=== PATIENT | female | born 1990 | race Caucasian/White ===

== ENCOUNTER 2018-09-23 19:45 | Inpatient (IN) | payer OTHER, SELFPAY ==
[2018-09-23] MEDS: Lactated Ringers 1,000 ML 50 ML IV (20:10)
[2018-09-23 20:52] LABS: Absolute Lymphocyte Count 2.71 X10^3/ul (0.83-4.51); Basophil# 0.01 X10^3/uL; Basophil% 0.1 % (0-1); Eosinophil# 0.05 X10^3/uL; Eosinophils% 0.4 % (0-5); Hematocrit 32.5 % (37-47); Hemoglobin 10.9 g/dl (12.0-15.0); Lymphocyte # 2.71 X10^3/ul (4.0); Lymphocyte % 21.5 % (19-41); Mean Corp Hgb Conc 33.5 g/gl (32-36); Mean Corpuscular Hgb 28.7 pg (27.0-32.0); Mean Corpuscular Volume 85.5 fL (81-99); Mean Platelet Vol. 11.1 fl (6.2-12.0); Monocyte# 0.86 X10^3/uL; Monocyte% 6.8 % (0-10); Neutrophil # 8.96 X10^3/uL (2.7-7.7); Platelet Count 308 K/mm3 (150-450); RBC Distribution Width CV 13.8 % (11.6-14.6); RBC Distribution Width SD 42.3 fl (35.1-43.9); White Blood Count 12.6 K/mm3 (4.4-11.0)
[2018-09-23 20:54] LABS: Prothrombin Time (Protime)PT. 12.7 SECONDS (11.7-14.9)
[2018-09-23 20:55] LABS: Partial Thromboplast Time 27.7 Seconds (24.1-36.2)
[2018-09-23 20:58] LABS: AST(SGOT) 15 U/L (15-37); Alanine Aminotransfer ALT/SGPT 15 U/L (13-56); Creatinine, Serum 0.61 mg/dL (0.55-1.02); EST Glomerular Filtration Rate 122 mL/min (>60); Est Glom Filt Rate - Afr Amer 148 mL/min (>60); Uric Acid 5.2 mg/dL (2.6-6.0)
[2018-09-23 20:59] LABS: Protein, Urine (Random) 20.6 mg/dL (<11.9); Protein:Creat Ratio 302 mg/g CRE (0-200)
--- NOTE | 2018-09-23 21:03 | PCM.HP.OB ---
- Problem List (1) Pre-eclampsia affecting , antepartum Status: Acute History Date of Admission: 09/23/18 Final RICH: 10/13/18 Final RICH Source: US <20 weeks Gestational age: 37 Weeks and 1 Days History of this : This is a 28 year-old, G [1], P [0], at 37 weeks gestational age presenting to labor and delivery for IOL for pre-eclampsia. Patient diagnosed with pre-eclampsia without severe features at 34 weeks. Patient denies JURADO, denies scotoma, denies RUQ pain or dizziness. Allergies No Known Allergies Allergy (Verified 09/23/18 20:46) Smoking Status: Never smoker Alcohol: None Number of Fetus(es): 1 Heart Tracing: Baseline 140, moderate variability, + accels, no decels TOCO Analysis: Irregular, mild to moderate in strength History Past Pregnancies: Past Pregnancies Delivery Date Name GA/Weeks Outcome Route Weight Infant Gender Labor Length Anesthesia Delivery Location Provider FOB Labs: O+, Abs Screen Neg, HIV NR, HepBsAg Neg, Rubella Immune, Syphilis NR, CF Screen Neg, Sequential Screen Negative, Urine Culture Neg, Urine Tox Neg, GC/CT Neg/Neg, CBC WNL x 4, Pre-E labs showed elevated P/C urine ratio and 24 hour urine protein (~300g/24 hours), LFTs WNL Expected Infant Delivery Method: Spontaneous Vaginal Number of Visits: 16 Review of Systems Constitutional: Denies: Chills, Fever, Weight Change HEENT: Denies: Head Aches, Sinus Congestion, Sinus Drainage Cardiovascular: Denies: Chest Pain, Palpitations Respiratory: Denies: Cough, Shortness of breath at rest, Sputum production Gastrointestinal: Denies: Abdominal Pain, Nausea, Vomiting Genitourinary: Denies: Dysuria Musculoskeletal: Denies: Joint Pain, Joint Tenderness Skin: Denies: Rash, Wounds Neurological: Denies: Numbness, Tingling, Focal weakness Psychiatric: Denies: Anxiety, Depression, Homicidal Ideations, Suicidal Ideations Hematologic/ Lymphatic: Denies: Easy Bruising, Easy Bleeding Physical Exam General: Alert, Oriented x3, No apparent distress HEENT: Atraumatic, Normocephalic. 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 Negative for: Vulvar lesions Estimated gestational size: Appropriate for gestational size Presentation: Cephalic Cervix Dilation (cm): 1 - head ballotable Station: -3 Effacement (%): 50 Assessment/Plan All Active Problems Pre-eclampsia affecting , antepartum (Acute) This is a 28 year-old, G [1], P [0], at 37+ weeks gestational age, IOL for Pre-Eclampsia without severe features P: 1) Admit patient - Dr. Fiore aware of admission 2) Cytotec 25 mg PV q 4 hours per protocol at this time - will reassess cervix after 2 doses 3) Pre-E panel and Urine P/C ratio collected 4) Reassess patient cervix PRN Kecia Leon [employer]PERVISOR [employer]-CNM
[2018-09-23 21:06] LABS: POSITIVE COUNT NO; POSITIVE DIFFERENTIAL NO; POSITIVE MORPHOLOGY NO
[2018-09-23 21:11] VITALS: BMI 39.2
[2018-09-23] MEDS: 0.9% Saline Lock 10 ML Syringe IV (21:12)
--- NOTE | 2018-09-23 21:12 | HP.PCM_ITS ---
- Problem List (1) Pre-eclampsia affecting , antepartum Status: Acute History Date of Admission: 09/23/18 Final RICH: 10/13/18 Final RICH Source: US <20 weeks Gestational age: 37 Weeks and 1 Days History of this : This is a 28 year-old, G [1], P [0], at 37 weeks gestational age presenting to labor and delivery for IOL for pre-eclampsia. Patient diagnosed with pre-eclampsia without severe features at 34 weeks. Patient denies JURADO, denies scotoma, denies RUQ pain or dizziness. Allergies No Known Allergies Allergy (Verified 09/23/18 20:46) Smoking Status: Never smoker Alcohol: None Number of Fetus(es): 1 Heart Tracing: Baseline 140, moderate variability, + accels, no decels TOCO Analysis: Irregular, mild to moderate in strength History Past Pregnancies: Past Pregnancies Delivery Date Name GA/Weeks Outcome Route Weight Infant Gender Labor Length Anesthesia Delivery Location Provider FOB Labs: O+, Abs Screen Neg, HIV NR, HepBsAg Neg, Rubella Immune, Syphilis NR, CF Screen Neg, Sequential Screen Negative, Urine Culture Neg, Urine Tox Neg, GC/CT Neg/Neg, CBC WNL x 4, Pre-E labs showed elevated P/C urine ratio and 24 hour urine protein (~300g/24 hours), LFTs WNL Expected Infant Delivery Method: Spontaneous Vaginal Number of Visits: 16 Review of Systems Constitutional: Denies: Chills, Fever, Weight Change HEENT: Denies: Head Aches, Sinus Congestion, Sinus Drainage Cardiovascular: Denies: Chest Pain, Palpitations Respiratory: Denies: Cough, Shortness of breath at rest, Sputum production Gastrointestinal: Denies: Abdominal Pain, Nausea, Vomiting Genitourinary: Denies: Dysuria Musculoskeletal: Denies: Joint Pain, Joint Tenderness Skin: Denies: Rash, Wounds Neurological: Denies: Numbness, Tingling, Focal weakness Psychiatric: Denies: Anxiety, Depression, Homicidal Ideations, Suicidal Ideations Hematologic/ Lymphatic: Denies: Easy Bruising, Easy Bleeding Physical Exam General: Alert, Oriented x3, No apparent distress HEENT: Atraumatic, Normocephalic. 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 Negative for: Vulvar lesions Estimated gestational size: Appropriate for gestational size Presentation: Cephalic Cervix Dilation (cm): 1 - head ballotable Station: -3 Effacement (%): 50 Assessment/Plan All Active Problems Pre-eclampsia affecting , antepartum (Acute) This is a 28 year-old, G [1], P [0], at 37+ weeks gestational age, IOL for Pre- Eclampsia without severe features P: 1) Admit patient - Dr. Fiore aware of admission 2) Cytotec 25 mg PV q 4 hours per protocol at this time - will reassess cervix after 2 doses 3) Pre-E panel and Urine P/C ratio collected 4) Reassess patient cervix PRN Kecia Leon [employer]LEMENT[employer] SCHOOL REGISTRAR-CNM
[2018-09-24] MEDS: 0.9% Normal Saline 100 ML IV.SOLN. INTRA-UTER (05:47)
--- NOTE | 2018-09-24 06:07 | PN.OBGYN_ITS ---
Patient Problems: Active and Suspected Problems Pre-eclampsia affecting , antepartum (Acute) Subjective: Patient rested well overnight, reports occasional cramping still after receiving 2 doses of Cytotec. Plan for repeat SVE now - will consider placement of ortiz bulb catheter if patient's cervix is more ripe. Objective: VSS, Afebrile; BPs remain in 130/80s at this time FHT baseline 130, moderate variability, + accels, no decels Ctx q 2-6 minutes, mild to moderately palpable SVE = 1.5/60/-2 - Physical Exam General: Alert, Oriented x3, Cooperative HEENT: Atraumatic, Normocephalic Lungs: Normal air movement Cardiovascular: Regular rate, No murmurs Abdomen: Soft, Non Tender Extremities: No edema, Capillary Refill Less than 3 Seconds Skin: No rashes, No breakdown Musculoskeletal: No Tenderness to Palpation of Joints or Extremities Neurological: Cranial nerves II-XII grossly intact, Deep Tendon Reflexes 2+/4 and Symmetrical - no clonus noted Psych/Mental Status: Normal Affect, Appropriate Weight: 221 lb 5.506 oz Body Mass Index (BMI) 39.2 Intake and Output for Last 24 Hours 09/22/18 09/23/18 09/24/18 23:59 23:59 23:59 Intake Total 44 / 44 800 / 800 Output Total 200 / 200 250 / 250 Balance -156 / -156 550 / 550 Laboratory Tests Past 24 Hrs 09/23/18 09/23/18 09/23/18 19:55 20:10 20:10 WBC 12.6 H RBC 3.80 L Hgb 10.9 L Hct 32.5 L MCV 85.5 MCH 28.7 MCHC 33.5 RDW 13.8 RDW Differential 42.3 Plt Count 308 MPV 11.1 Immature Gran % (Auto) 0.200 Neut % (Auto) 71.0 H Lymph % (Auto) 21.5 [place] % (Auto) 6.8 Eos % (Auto) 0.4 Baso % (Auto) 0.1 Absolute Neuts (auto) 9.0 H Absolute Lymphs (auto) 2.71 Total Counted Not Reportable PT INR APTT Creatinine Est GFR (MDRD) Af Amer Est GFR (MDRD) Non-Af Uric Acid AST ALT U Random Total Protein 20.6 H Urine Creatinine 68.20 Protein/Creatinin Ratio 302 H Blood Type O POSITIVE Antibody Screen NEGATIVE 09/23/18 09/23/18 20:10 20:10 WBC RBC Hgb Hct MCV MCH MCHC RDW RDW Differential Plt Count MPV Immature Gran % (Auto) Neut % (Auto) Lymph % (Auto) [place] % (Auto) Eos % (Auto) Baso % (Auto) Absolute Neuts (auto) Absolute Lymphs (auto) Total Counted PT 12.7 INR 1.0 APTT 27.7 Creatinine 0.61 Est GFR (MDRD) Af Amer 148 Est GFR (MDRD) Non-Af 122 Uric Acid 5.2 AST 15 ALT 15 U Random Total Protein Urine Creatinine Protein/Creatinin Ratio Blood Type Antibody Screen Medical Necessity - Tobacco Use Smoking Status: Never smoker Assessment/Plan All Active Problems Pre-eclampsia affecting , antepartum (Acute) 28 y/o @ 37+1 weeks, IOL for pre-eclampsia without severe features, Category I FHT P: 1) Ortiz Bulb placed, will start pitocin if ortiz bulb is not expelled within a few hours on own. 2) Patient may have breakfast tray prior to initiation of pitocin 3) Continue to watch for s/s of worsening pre-eclampsia Kecia ANDERSON
[2018-09-24] MEDS: Oxytocin 30 units/NS 500 ml 30 UNITS/500 ML IV.SOLN IV (08:45)
--- NOTE | 2018-09-24 08:57 | PN.OBGYN_ITS ---
Patient Problems: Active and Suspected Problems Pre-eclampsia affecting , antepartum (Acute) Subjective: Up walking in room, comfortable. No active labor. Ate breakfast this am. at bedside. Objective: FHT 120, moderate variability, accels, no decels, Category 1 - Physical Exam Psych/Mental Status: Normal Affect, Appropriate Comment: Cervix 4cm/60%/-2 IBOW. TOCO: Irregular every 2-4 minutes, mild. Weight: 221 lb 5.506 oz Body Mass Index (BMI) 39.2 Intake and Output for Last 24 Hours 09/22/18 09/23/18 09/24/18 23:59 23:59 23:59 Intake Total 44 / 44 800 / 800 Output Total 200 / 200 550 / 550 Balance -156 / -156 250 / 250 Laboratory Tests Past 24 Hrs 09/23/18 09/23/18 09/23/18 19:55 20:10 20:10 WBC 12.6 H RBC 3.80 L Hgb 10.9 L Hct 32.5 L MCV 85.5 MCH 28.7 MCHC 33.5 RDW 13.8 RDW Differential 42.3 Plt Count 308 MPV 11.1 Immature Gran % (Auto) 0.200 Neut % (Auto) 71.0 H Lymph % (Auto) 21.5 [place] % (Auto) 6.8 Eos % (Auto) 0.4 Baso % (Auto) 0.1 Absolute Neuts (auto) 9.0 H Absolute Lymphs (auto) 2.71 Total Counted Not Reportable PT INR APTT Creatinine Est GFR (MDRD) Af Amer Est GFR (MDRD) Non-Af Uric Acid AST ALT U Random Total Protein 20.6 H Urine Creatinine 68.20 Protein/Creatinin Ratio 302 H Blood Type O POSITIVE Antibody Screen NEGATIVE 09/23/18 09/23/18 20:10 20:10 WBC RBC Hgb Hct MCV MCH MCHC RDW RDW Differential Plt Count MPV Immature Gran % (Auto) Neut % (Auto) Lymph % (Auto) [place] % (Auto) Eos % (Auto) Baso % (Auto) Absolute Neuts (auto) Absolute Lymphs (auto) Total Counted PT 12.7 INR 1.0 APTT 27.7 Creatinine 0.61 Est GFR (MDRD) Af Amer 148 Est GFR (MDRD) Non-Af 122 Uric Acid 5.2 AST 15 ALT 15 U Random Total Protein Urine Creatinine Protein/Creatinin Ratio Blood Type Antibody Screen Medical Necessity - Tobacco Use Smoking Status: Never smoker Assessment/Plan All Active Problems Pre-eclampsia affecting , antepartum (Acute) A:Induction of labor due to Pre-eclampsia Category 1 FHT P: 1) Start Pitocin for active management and continue with IOL after cervical r ipening with Cytotec and ortiz bulb overnight 2) Positional changes and pain management as patient desires. Patient thinks she will get epidural for pain management. 3) collaborative physician and notified of patient status. 4) BP and labs stable.
--- NOTE | 2018-09-24 12:18 | PN.OBGYN_ITS ---
Patient Problems: Active and Suspected Problems Pre-eclampsia affecting , antepartum (Acute) Subjective: Doing well per patient and nursing staff. Ambulating and up out of bed. Rating pain 3/10. at bedside. Objective: FHT 130, moderate variability, accels, no decels, Category 1 Cervix 4.5cm/70%/-2 IBOW, head well applied. Cervix posterior. TOCO every 2-3 minutes, moderate. Pitocin at 8 mu's - Physical Exam Weight: 221 lb 5.506 oz Body Mass Index (BMI) 39.2 Intake and Output for Last 24 Hours 09/22/18 09/23/18 09/24/18 23:59 23:59 23:59 Intake Total 44 / 44 1300 / 1300 Output Total 200 / 200 1150 / 1150 Balance -156 / -156 150 / 150 Laboratory Tests Past 24 Hrs 09/23/18 09/23/18 09/23/18 19:55 20:10 20:10 WBC 12.6 H RBC 3.80 L Hgb 10.9 L Hct 32.5 L MCV 85.5 MCH 28.7 MCHC 33.5 RDW 13.8 RDW Differential 42.3 Plt Count 308 MPV 11.1 Immature Gran % (Auto) 0.200 Neut % (Auto) 71.0 H Lymph % (Auto) 21.5 [place] % (Auto) 6.8 Eos % (Auto) 0.4 Baso % (Auto) 0.1 Absolute Neuts (auto) 9.0 H Absolute Lymphs (auto) 2.71 Total Counted Not Reportable PT INR APTT Creatinine Est GFR (MDRD) Af Amer Est GFR (MDRD) Non-Af Uric Acid AST ALT U Random Total Protein 20.6 H Urine Creatinine 68.20 Protein/Creatinin Ratio 302 H Blood Type O POSITIVE Antibody Screen NEGATIVE 09/23/18 09/23/18 20:10 20:10 WBC RBC Hgb Hct MCV MCH MCHC RDW RDW Differential Plt Count MPV Immature Gran % (Auto) Neut % (Auto) Lymph % (Auto) [place] % (Auto) Eos % (Auto) Baso % (Auto) Absolute Neuts (auto) Absolute Lymphs (auto) Total Counted PT 12.7 INR 1.0 APTT 27.7 Creatinine 0.61 Est GFR (MDRD) Af Amer 148 Est GFR (MDRD) Non-Af 122 Uric Acid 5.2 AST 15 ALT 15 U Random Total Protein Urine Creatinine Protein/Creatinin Ratio Blood Type Antibody Screen Medical Necessity - Tobacco Use Smoking Status: Never smoker Assessment/Plan All Active Problems Pre-eclampsia affecting , antepartum (Acute) A:Induction of Labor for Pre-eclampsia Category 1 FHT P: 1) Continue with IOL, Pitocin per protocol 2) Continue with positional changes. 3) Epidural at patient request. 4) notified of patient progress.
[2018-09-24] MEDS: Lactated Ringers 1,000 ML 50 ML IV ×4 (14:30→22:25)
[2018-09-24] MEDS: fentaNYL-bupivacaine (epidural) 100 ML BAG EPIDURAL ×2 (14:48→19:27)
--- NOTE | 2018-09-24 17:42 | PN.OBGYN_ITS ---
Patient Problems: Active and Suspected Problems Pre-eclampsia affecting , antepartum (Acute) Subjective: Resting in bed, comfortable with epidural. at bedside. Objective: FHT 125, moderate variability, accels, no decels Cervix: 6cm/70%/-2 IBOW. AROM for moderate amount of clear fluid. TOCO:every 2-4 minutes, moderate, Pitocin at 10 mu's - Physical Exam Weight: 221 lb 5.506 oz Body Mass Index (BMI) 39.2 Intake and Output for Last 24 Hours 09/22/18 09/23/18 09/24/18 23:59 23:59 23:59 Intake Total 44 / 44 1800 / 1800 Output Total 200 / 200 1850 / 1850 Balance -156 / -156 -50 / -50 Laboratory Tests Past 24 Hrs 09/23/18 09/23/18 09/23/18 19:55 20:10 20:10 WBC 12.6 H RBC 3.80 L Hgb 10.9 L Hct 32.5 L MCV 85.5 MCH 28.7 MCHC 33.5 RDW 13.8 RDW Differential 42.3 Plt Count 308 MPV 11.1 Immature Gran % (Auto) 0.200 Neut % (Auto) 71.0 H Lymph % (Auto) 21.5 [place] % (Auto) 6.8 Eos % (Auto) 0.4 Baso % (Auto) 0.1 Absolute Neuts (auto) 9.0 H Absolute Lymphs (auto) 2.71 Total Counted Not Reportable PT INR APTT Creatinine Est GFR (MDRD) Af Amer Est GFR (MDRD) Non-Af Uric Acid AST ALT U Random Total Protein 20.6 H Urine Creatinine 68.20 Protein/Creatinin Ratio 302 H Blood Type O POSITIVE Antibody Screen NEGATIVE 09/23/18 09/23/18 20:10 20:10 WBC RBC Hgb Hct MCV MCH MCHC RDW RDW Differential Plt Count MPV Immature Gran % (Auto) Neut % (Auto) Lymph % (Auto) [place] % (Auto) Eos % (Auto) Baso % (Auto) Absolute Neuts (auto) Absolute Lymphs (auto) Total Counted PT 12.7 INR 1.0 APTT 27.7 Creatinine 0.61 Est GFR (MDRD) Af Amer 148 Est GFR (MDRD) Non-Af 122 Uric Acid 5.2 AST 15 ALT 15 U Random Total Protein Urine Creatinine Protein/Creatinin Ratio Blood Type Antibody Screen Medical Necessity - Tobacco Use Smoking Status: Never smoker Assessment/Plan All Active Problems Pre-eclampsia affecting , antepartum (Acute) A: Active Labor Category 1 FHT P: 1) Progressing. AROM reviewed with patient and consented. 2) Epidural for pain management 3) BP stable 4) notified of patient progress.
[2018-09-25] MEDS: fentaNYL-bupivacaine (epidural) 100 ML BAG EPIDURAL (05:27)
[2018-09-25] MEDS: Oxytocin 30 units/NS 500 ml 30 UNITS/500 ML IV.SOLN 334 UNITS IV (06:50)
--- NOTE | 2018-09-25 07:15 | PCM.OPRPT ---
Problem List (1) Vaginal delivery Status: Acute (2) Second degree perineal laceration Status: Acute Vaginal Delivery Maternal Presentation: Medically Indicated Induction Method of Induction: Pitocin, Graham Bulb, Cytotec Medical Reason for Induction: Preeclampsia, eclampsia Amniotic Membrane Rupture Type: Artificial Amniotic Fluid Description: Clear Final RICH: 10/13/18 Final RICH Source: LMP Gestational age: 37 Weeks and 3 Days Date of Procedure: 09/25/18 Pre-Operative Diagnosis: Induction of Labor due to Pre-eclampsia Post-Operative Diagnosis: Surgery/ Procedure Performed: Spontaneous Vaginal Delivery Type of Anesthesia: Epidural Description of Procedure: Progressed to complete with urge to push. of viable female over 2nd degree perineal laceration. Infant head delivered VIKY and body forthcoming. CAN x1, delivered through. Infant delivered and placed on maternal abdomen, stimulated, mouth and nares suctioned for secretions, strong cry. APGARS 7, 9. Pitocin started for active 3rd stage management. Cord clamped and cut after pulsations ceased by FOB. Placenta delivered intact via kris, 3 vessel cord with maternal effort. Perineum inspected and revealed 2nd degree perineal laceration, repaired with 3.0 Vicryl under epidural analgesia. Vaginal sweep completed, sponge and instrument count correct. Fundus firm, 350ml EBL. Mom and baby stable. Family bonding well. Planning to breastfeed. notified of delivery. Presentation: Vertex Placental Delivery Description: Spontaneous Placenta Disposition: [facility] Cord Vessel Description: 3 Vessels Cord Entanglement: Around neck x 1, loose Estimated Blood Loss: 350ml A gender: Female (1 minute): 7 (5 minute): 9 Laceration: Perineal Extension/lac, 2nd degree Medications given after delivery: IV Pitocin
[2018-09-25] MEDS: Oxytocin 30 units/NS 500 ml 30 UNITS/500 ML IV.SOLN 167 UNITS IV (07:20)
[2018-09-25] MEDS: Ibuprofen 600 MG Tablet PO ×2 (10:24→18:32)
[2018-09-25] MEDS: Dibucaine 30 GM Tube 1 APPLIC TOPICAL (10:25)
[2018-09-25 12:27] VITALS: BP 131/79; PULSE 93; RESP 18; TEMP 36.2
[2018-09-25 16:00] VITALS: BP 133/79; PULSE 97; RESP 18; TEMP 36.5
[2018-09-25 20:15] VITALS: BP 120/72; PULSE 80; RESP 17; TEMP 36.5
[2018-09-26 00:40] VITALS: BP 129/78; PULSE 80; RESP 18; TEMP 36.6
[2018-09-26] MEDS: Ibuprofen 600 MG Tablet PO ×3 (03:45→23:48)
[2018-09-26 03:56] VITALS: BP 125/78; PULSE 78; RESP 18; TEMP 37.1
[2018-09-26 07:13] LABS: Hematocrit 26.3 % (37-47); Hemoglobin 8.6 g/dl (12.0-15.0); Mean Corp Hgb Conc 32.7 g/gl (32-36); Mean Corpuscular Hgb 28.3 pg (27.0-32.0); Mean Corpuscular Volume 86.5 fL (81-99); Mean Platelet Vol. 10.9 fl (6.2-12.0); Platelet Count 223 K/mm3 (150-450); RBC Distribution Width CV 13.9 % (11.6-14.6); RBC Distribution Width SD 41.9 fl (35.1-43.9); Red Blood Count 3.04 M/mm3 (4.2-5.4); White Blood Count 18.2 K/mm3 (4.4-11.0)
[2018-09-26 07:16] LABS: Scan Indicated on CBC? Y/N NO
[2018-09-26 08:00] VITALS: BP 132/75; PULSE 90; RESP 18; TEMP 36.2
[2018-09-26] MEDS: Acetaminophen 500 MG Tablet 1000 MG PO ×2 (08:09→19:38)
--- NOTE | 2018-09-26 11:36 | PCM.PN.OB ---
Patient Problems: Active and Suspected Problems Pre-eclampsia affecting , antepartum (Acute) Vaginal delivery (Acute) Second degree perineal laceration (Acute) Subjective: Doing well per patient and nursing staff. Ambulating and taking PO without difficulty. without complications. Denies any headaches, shortness of breath, increased vaginal bleeding, or pain. Planning D/C home tomorrow. - Physical Exam General: Alert, Oriented x3, Cooperative HEENT: Atraumatic, Normocephalic Neck: Trachea Midline Lungs: Clear to auscultation, Normal air movement, No rhonchi, No wheeze Cardiovascular: Regular rate, Regular Rhythm, No murmurs Abdomen: Bowel Sounds Present, Soft, - - Fundus firm 2 below U Extremities: No edema Neurological: Deep Tendon Reflexes 2+/4 and Symmetrical Psych/Mental Status: Normal Affect, Appropriate Vital Signs Temp Pulse Resp BP 97.1 F L 90 18 132/75 H 09/26/18 08:00 09/26/18 08:00 09/26/18 08:00 09/26/18 08:00 Oxygen Delivery Method Room Air Weight: 221 lb 5.506 oz Body Mass Index (BMI) 39.2 Intake and Output for Last 24 Hours 09/24/18 09/25/18 09/26/18 23:59 23:59 23:59 Intake Total 4341 / 4341 1484 / 1484 Output Total 2650 / 2650 1999 Balance 1691 / 1691 -516 / -516 Laboratory Tests Past 24 Hrs 09/26/18 Unknown WBC 18.2 H RBC 3.04 L Hgb 8.6 L Hct 26.3 L MCV 86.5 MCH 28.3 MCHC 32.7 RDW 13.9 RDW Differential 41.9 Plt Count 223 MPV 10.9 Medical Necessity - Tobacco Use Smoking Status: Never smoker Assessment/Plan All Active Problems Pre-eclampsia affecting , antepartum (Acute) Vaginal delivery (Acute) Second degree perineal laceration (Acute) A:PPD #1 Blood loss anemia P: 1) Hgb decreased from 10.9 to 8.6, asymptomatic. Will start ferrous sulfate 325mg PO BID. 2) support and instructions given today. Reviewed positional changes and techniques. Consult services if needed. Nursing helping today. 3) Pain controlled. 4) BP stable at this time, will continue to monitor. 5) Planning D/C home tomorrow.
[2018-09-26] MEDS: Ferrous Sulfate 325 MG Tablet PO ×2 (12:43→19:38)
[2018-09-26 14:50] VITALS: BP 128/83; PULSE 80; RESP 18; TEMP 36.6
[2018-09-26 20:10] VITALS: BP 127/82; PULSE 87; RESP 16; TEMP 36.6; O2SAT 100
[2018-09-27 01:30] VITALS: BP 122/72; PULSE 76; RESP 16; TEMP 36.4; O2SAT 100
[2018-09-27] MEDS: Acetaminophen 500 MG Tablet 1000 MG PO (06:12)
[2018-09-27 06:15] LABS: Absolute Neutrophil Count 8.1 X10^3/uL (2.0-7.7); Basophil# 0.01 X10^3/uL; Basophil% 0.1 % (0-1); Eosinophil# 0.25 X10^3/uL; Hematocrit 26.3 % (37-47); Hemoglobin 8.5 g/dl (12.0-15.0); Lymphocyte % 27.9 % (19-41); Mean Corp Hgb Conc 32.3 g/gl (32-36); Mean Corpuscular Hgb 28.3 pg (27.0-32.0); Mean Corpuscular Volume 87.7 fL (81-99); Mean Platelet Vol. 10.7 fl (6.2-12.0); Monocyte# 0.62 X10^3/uL; Monocyte% 4.9 % (0-10); Neutrophil # 8.13 X10^3/uL (2.7-7.7); Neutrophil % 64.7 % (47-70); Platelet Count 245 K/mm3 (150-450); White Blood Count 12.6 K/mm3 (4.4-11.0)
[2018-09-27 06:20] LABS: POSITIVE COUNT NO; POSITIVE DIFFERENTIAL NO; POSITIVE MORPHOLOGY NO
[2018-09-27 09:11] VITALS: BP 137/75; PULSE 67; RESP 18; TEMP 36.4
[2018-09-27] MEDS: Ibuprofen 600 MG Tablet PO (09:18)
--- NOTE | 2018-09-27 09:58 | PCM.PN.OB ---
Patient Problems: Active and Suspected Problems Pre-eclampsia affecting , antepartum (Acute) Vaginal delivery (Acute) Second degree perineal laceration (Acute) Subjective: No complaints - Physical Exam General: Alert, Oriented x3 Abdomen: Soft, Non Tender, Non-Distended - ff mid & below umb Extremities: No Calf Tenderness Neurological: Cranial nerves II-XII grossly intact Vital Signs Temp Pulse Resp BP Pulse Ox 97.6 F L 67 18 137/75 H 100 09/27/18 09:11 09/27/18 09:11 09/27/18 09:11 09/27/18 09:11 09/27/18 01:30 Oxygen Delivery Method Room Air Weight: 221 lb 5.506 oz Body Mass Index (BMI) 39.2 Intake and Output for Last 24 Hours 09/25/18 09/26/18 09/27/18 23:59 23:59 23:59 Intake Total 1484 / 1484 Output Total 1999 Balance -516 / -516 Laboratory Tests Past 24 Hrs 09/27/18 06:10 WBC 12.6 H RBC 3.00 L Hgb 8.5 L Hct 26.3 L MCV 87.7 MCH 28.3 MCHC 32.3 RDW 14.0 RDW Differential 43.0 Plt Count 245 MPV 10.7 Immature Gran % (Auto) 0.400 Neut % (Auto) 64.7 Lymph % (Auto) 27.9 [place] % (Auto) 4.9 Eos % (Auto) 2.0 Baso % (Auto) 0.1 Absolute Neuts (auto) 8.1 H Absolute Lymphs (auto) 3.50 Total Counted Not Reportable Medical Necessity - Tobacco Use Smoking Status: Never smoker Assessment/Plan All Active Problems Pre-eclampsia affecting , antepartum (Acute) Vaginal delivery (Acute) Second degree perineal laceration (Acute) PPD#2 Anemia - d/c home on iron Preeclampsia - BP's normal D/c home
--- NOTE | 2018-09-27 10:00 | DCINST_ITS ---
Discharge Diet: No Restrictions Discharge Activity: May Drive, May Shower May resume sexual activity in: 4-6 weeks Weight Bearing Status: Weight bearing as tolerated Additional Instructions: If you experience any of the following, contact your healthcare provider. * Bleeding that soaks a pad every hour for 2 hours * Fever 100.4 or higher * Unrelieved incision or abdominal pain * Swelling, redness, discharge or bleeding from your incision or episiotomy site * Your incision begins to separate * Problems urinating (including inability to urinate or burning while urinating). * Visual changes * Severe headache * Flu-like symptoms * Pain or redness in one of both of your breasts * Pain, warmth, tenderness or swelling in your legs, especially the calf area * Frequent nausea and vomiting * Symptoms of depression or anxiety If you experience any of the following, call 911 or go to the nearest Emergency Room. * Chest pain * Problems breathing * Seizure activity * Partial or complete paralysis of a body part, slurred speech, weakness or drooping of the face, or a sudden inability to walk or hold your balance Allergies/Adverse Reactions: Allergies No Known Allergies Allergy (Verified 09/23/18 21:04) Medications to take at Discharge Ascorbate Calcium/Bioflavonoid [Kelsea-C 500 mg Tablet] 1 each PO DAILY 09/23/18 Vits [Prenatabs FA ] 1 tablet PO DAILY 09/23/18 Ferrous Sulfate 325 mg PO DAILY #30 tablet 09/27/18 The following prescriptions were given: Ferrous Sulfate 325 mg PO DAILY #30 tablet Primary Care Physician: Josafat Milton [Primary Care Provider] - Test Results: Test results from this visit will be discussed in further detail at your follow- up appointment, if applicable.
--- NOTE | 2018-09-27 10:00 | PCM.DCVAG ---
Discharge Diet: No Restrictions Discharge Activity: May Drive, May Shower May resume sexual activity in: 4-6 weeks Weight Bearing Status: Weight bearing as tolerated Additional Instructions: If you experience any of the following, contact your healthcare provider. Bleeding that soaks a pad every hour for 2 hours Fever 100.4 or higher Unrelieved incision or abdominal pain Swelling, redness, discharge or bleeding from your incision or episiotomy site Your incision begins to separate Problems urinating (including inability to urinate or burning while urinating). Visual changes Severe headache Flu-like symptoms Pain or redness in one of both of your breasts Pain, warmth, tenderness or swelling in your legs, especially the calf area Frequent nausea and vomiting Symptoms of depression or anxiety If you experience any of the following, call 911 or go to the nearest Emergency Room. Chest pain Problems breathing Seizure activity Partial or complete paralysis of a body part, slurred speech, weakness or drooping of the face, or a sudden inability to walk or hold your balance Allergies/Adverse Reactions: Allergies No Known Allergies Allergy (Verified 09/23/18 21:04) Medications to take at Discharge Ascorbate Calcium/Bioflavonoid [Kelsea-C 500 mg Tablet] 1 each PO DAILY 09/23/18 Vits [Prenatabs FA ] 1 tablet PO DAILY 09/23/18 Ferrous Sulfate 325 mg PO DAILY #30 tablet 09/27/18 The following prescriptions were given: Ferrous Sulfate 325 mg PO DAILY #30 tablet Primary Care Physician: Josafat Milton [Primary Care Provider] - Test Results: Test results from this visit will be discussed in further detail at your follow-up appointment, if applicable.
--- NOTE | 2018-10-02 15:45 | NURSING ---
Follow up call done, patient states her blood pressures have been 120/80 denies symptoms. canceled appointment and states things are still going well with . was satisfied with her care
--- NOTE | 2018-11-24 06:28 | PCM.DC.SUM ---
Discharge Date and Diagnosis Date of Admission: 09/23/18 Date of Discharge: 11/27/18 Hospital Course and Treatment Summary of Care Provided: The patient is a 28 year old F who was admitted with preeclampsia. She was induced and had a . Her course was uncomplicated. She was discharged home on PPD#2. She was given discharge instructions and follow-up appointments. - Physical Exam Vital Signs Temp Pulse Resp BP Pulse Ox 97.6 F L 67 18 137/75 H 100 09/27/18 09:11 09/27/18 09:11 09/27/18 09:11 09/27/18 09:11 09/27/18 01:30 Oxygen Delivery Method Room Air Weight: 221 lb 5.506 oz Body Mass Index (BMI) 39.2 Discharge Diet: No Restrictions Discharge Activity: May Drive, May Shower May resume sexual activity in: 4-6 weeks Weight Bearing Status: Weight bearing as tolerated Home Medications: Medications to take at Discharge Ascorbate Calcium/Bioflavonoid [Kelsea-C 500 mg Tablet] 1 each PO DAILY 09/23/18 Vits [Prenatabs FA ] 1 tablet PO DAILY 09/23/18 Ferrous Sulfate 325 mg PO DAILY #30 tablet 09/27/18 Following Prescrptions Were Given to Patient: Ferrous Sulfate 325 mg PO DAILY #30 tablet Transmission Status: Received by [facility] Primary Care Physician: Josafat Milton [Primary Care Provider] - Medical Necessity - Tobacco Use Smoking Status: Never smoker Meaningful Use Info Meaningful Use Diagnoses (Choose all that apply): None applicable
== END 2018-09-27 12:20 | disposition home or self-care (01) | DRG 807 ==
PROVIDERS: Advanced Practice Midwife; Admitting Provider Obstetrics & Gynecology; Family Provider Family Medicine; PCP Family Medicine; Referring Provider Obstetrics & Gynecology; Visit Provider Obstetrics & Gynecology
DX: O60.14X0 Preterm labor third trimester with preterm delivery third trimester, not applicable or unspecified (principal); Z37.0 Single live birth; O14.94 Unspecified pre-eclampsia, complicating childbirth; O70.1 Second degree perineal laceration during delivery; O69.81X0 Labor and delivery complicated by cord around neck, without compression, not applicable or unspecified; Z3A.37 37 weeks gestation of pregnancy; O90.81 Anemia of the puerperium; D64.9 Anemia, unspecified
CPT/HCPCS: 59025; 59050; 82565; 82570; 84156; 84450; 84460; 84550; 85025; 85027; 85610; 85730; 86850; 86900; 99218; J7120; A4216; G0378

== ENCOUNTER 2021-09-16 09:00 | Inpatient (IN) | payer OTHER, SELFPAY ==
[2021-09-16] VITALS (52 sets, daily range): BP systolic 96–182; BP diastolic 51–93; PULSE 62–109; TEMP 35.9–36; O2SAT 93–100; BMI 38.7
[2021-09-16] MEDS: Lactated Ringers 1,000 ML 50 ML IV (10:05)
[2021-09-16 10:21] LABS: Absolute Lymphocyte Count 2.52 X10^3/uL (0.83-4.51); Absolute Neutrophil Count 8.9 X10^3/uL (2.0-7.7); Basophil# 0.02 X10^3/uL; Basophil% 0.2 % (0-1); Eosinophil# 0.08 X10^3/uL; Eosinophils% 0.6 % (0-5); Hematocrit 36.1 % (37-47); Hemoglobin 11.8 g/dL (12.0-15.0); Lymphocyte # 2.52 X10^3/ul (0.83-4.51); Lymphocyte % 20.4 % (19-41); Mean Corp Hgb Conc 32.7 g/dL (32-36); Mean Corpuscular Hgb 29.1 pg (27.0-32.0); Mean Corpuscular Volume 89.1 fL (81-99); Monocyte# 0.76 X10^3/uL; Monocyte% 6.1 % (0-10); NRBC Flagged by Analyzer 0 % (0-5); Neutrophil # 8.91 X10^3/uL (2.7-7.7); Neutrophil % 72.1 % (47-70); Platelet Count 305 K/mm3 (150-450); RBC Distribution Width CV 13.1 % (11.6-14.6); RBC Distribution Width SD 42.5 fl (35.1-43.9); Red Blood Count 4.05 M/mm3 (4.2-5.4); White Blood Count 12.4 K/mm3 (4.4-11.0)
--- NOTE | 2021-09-16 10:42 | HP.PCM.OB_ITS ---
HPI - General General Date of Admission: 09/16/21 HPI Narrative CRISTOPHER ALVARADO, is a 31 F at 40.1 who presents in spontaneous labor. She reports starting contractions yesterday. Denies any loss of fluid or vaginal bleeding. Positive movement. complicated by obesity, leonard bchorionic hematoma (1st trimester), depression and history of preeclampsia with first . Maternal Data Information RCIH Calculator Estimated Delivery Date Method Current WG Current Estimate 09/15/21 Manual 40w 1d PFSH PFSH Home Medications ascorbate calcium-bioflavonoid [Kelsea-C with Bioflavonoids] 1 ea PO DAILY 09/23/18 [History Last Taken 09/23/18 09:00 1 tab] [id number] [Prenatabs FA] 1 tab PO DAILY 09/23/18 [History Last Taken 09/23/18 09:00 1 tab] ferrous sulfate 325 mg PO DAILY #30 tablet 09/27/18 [Rx Last Taken Unknown] Allergy/AdvReac Type Severity Reaction Status Date / Time No Known Allergies Allergy Verified 09/23/18 21:04 Social History Smoking Status: Never smoker History Elective abortions Hx Para 1 Spontaneous abortions Hx # Term Pregnancies Ectopic pregnancies Hx # Pregnancies Multiple births # of living children NST FHR Rate Baby A Baseline: 125 Variability:: Moderate Accelerations:: 15 x 15 Decelerations:: None NST Reactive:: Yes FHR Category:: Category I Uterine Activity:: 2-4 ROS Eyes Eyes: Denies blurry vision, change in vision or spots in vision ENT HEENT: Denies dizziness or headache(s) Cardiovascular Cardiovascular: Denies abdominal pain, chest pain or dyspnea Respiratory/Chest Respiratory/Chest: Denies cough, dyspnea, shortness of breath at rest or shortness of breath with exertion Gastrointestinal Gastrointestinal: Denies abdominal pain, diarrhea or vomiting Genitourinary Genitourinary: Denies change in urinary stream, difficulty urinating or dysuria Musculoskeletal Musculoskeletal: Reports none Integumentary Integumentary: Denies rash Neurologic Neurologic: Denies dizziness, headache(s), memory loss or weakness Psychiatric Psychiatric: Reports none Vital Signs Vital Signs Vital Signs: 09/16/21 08:52 09/16/21 10:23 Pulse Rate 76 67 Blood Pressure 137/89 H 133/85 H BP Systolic 137 133 BP Diastolic 89 85 Weight Weight: 219 lb Body Mass Index (BMI) 38.7 Physical Exam Const alert, oriented x3 and no apparent distress General Appearance: cooperative Orientation / Consciousness: awake Exam Limitations: no limitations HEENT normocephalic Head and Scalp: normal to inspection Eyes General Eye: normal appearance of both eyes Neck full ROM and no lymphadenopathy Lymph Lymphatic: no lymphadenopathy noted Chest inspection of chest normal Resp normal respiratory effort, normal air movement and clear to auscultation bilaterally Effort and Inspection: able to speak in complete sentences and symmetric chest m ovement Cardio regular rate and regular rhythm GI normal to inspection, nondistended, normoactive bowel sounds Manual OB Exam: presentation cephalic, dilated 4 and effaced 80 Back/Spine normal ROM Extremity full ROM and no calf tenderness Skin no rashes or lesions noted General Skin Exam: no breakdown Neuro oriented x3 and CN's II-XII intact bilaterally Psych mental status grossly normal and thought process normal Labs Labs Labs: Blood Type O POSITIVE Antibody Screen NEGATIVE Hct 36.1 % (37-47) L Hgb 11.8 g/dL (12.0-15.0) L Rhogam given: No Rubella- immune HB- neg HC- neg RPR- NR HIV- NR GBS- negative Assessment & Plan (1) Spontaneous onset of labor: (2) 40 weeks gestation of : (3) Obesity affecting in third trimester, antepartum: PLAN: Admit to labor and delivery Routine labs Start IV fluids and run at rate set per orders GBS negative NST reactive, Cat. 1 tracing Epidural when indicated Will start Pitocin IV if no cervical change at next exam Anticipate Dr. Kennedy notified and is collaborating physician
--- NOTE | 2021-09-16 12:41 | PCM.PN.BLA ---
Progress Note Patient seen at bedside. Sitting on birthing ball. Ambulating in room and hallway. Feels like contractions are getting closer together and stronger. Unsure if desires epidural. Requests AROM. Physical Exam Const alert and no apparent distress General Appearance: cooperative and comfortable Exam Limitations: no limitations HEENT normocephalic Eyes General Eye: normal appearance of both eyes Neck full ROM General: normal visual inspection Chest Chest: symmetrical chest wall rise Resp normal respiratory effort and normal air movement Effort and Inspection: symmetric chest movement Auscultation: clear to auscultation bilaterally Cardio regular rate and regular rhythm GI normal to inspection, nondistended, normoactive bowel sounds Back/Spine normal ROM Extremity full ROM and no calf tenderness General Extremity: normal exam except as noted Skin no rashes or lesions noted Neuro CN's II-XII intact bilaterally Psych mental status grossly normal Assessment & Plan Assessment/Plan (1) Meconium in amniotic fluid: (2) 40 weeks gestation of : (3) Spontaneous onset of labor: PLAN: CE- /-1 AROM for small amount of meconium fluid- 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
[2021-09-16] MEDS: Lactated Ringers 500 ML 999 ML IV (13:36)
[2021-09-16] MEDS: 0.9% Saline Lock 10 ML Syringe IV ×2 (13:37→23:38)
[2021-09-16] MEDS: fentaNYL-bupivacaine (epidural) 100 ML BAG EPIDURAL ×2 (14:20→18:26)
[2021-09-16] MEDS: Acetaminophen 500 MG Tablet PO (17:50)
[2021-09-16] MEDS: Oxytocin 30 units/NS 500 ml 30 UNITS/500 ML IV.SOLN IV (18:23)
[2021-09-16] MEDS: Lactated Ringers 1,000 ML 200 ML IV (18:23)
[2021-09-16] MEDS: Oxytocin 30 units/NS 500 ml 30 UNITS/500 ML IV.SOLN 334 UNITS IV (21:08)
--- NOTE | 2021-09-16 22:19 | PCM.PN.BLA ---
Progress Note Called to assess for cervical laceration. At bedside to examine pt. The entire cervix was visualized and noted to be intact with no lacerations. The anterior lip of the cervix was edematous and the edge of the anterior lip was continuously oozing. Vaginal packing was placed.
--- NOTE | 2021-09-16 22:23 | EX.PCM.OBRPT ---
Assessment & Plan (1) Vaginal delivery: (2) 40 weeks gestation of : (3) Laceration, obstetrical, first degree: Maternal Data Information RICH Calculator Estimated Delivery Date Method Current WG Current Estimate 09/15/21 Manual 40w 1d Vaginal Delivery Maternal Presentation Maternal Presentation: - (Spontaneous onset of labor) Maternal Presentation: at 40.1 weeks that presented in spontaneous labor. Patient stated contractions started last night. Denies any loss of fluid or vaginal bleeding. Operative Information Date of Procedure: 09/16/21 Pre-Operative Diagnosis: Term gestation, spontaneous labor Post-Operative Diagnosis: Same, live male infant Surgery / Procedure Performed: Spontaneous Vaginal Delivery Type of Anesthesia: Epidural Drain: Graham to straight drain Estimated Blood Loss: 400 Time of Delivery: 21:04 Findings Description of Procedure: Patient complete dilation and feeling increased pressure. Pushing well with contractions. With minimal maternal effort, head delivered followed immediately by body. Vigorous male placed on maternal abdomen and attended to by nursing staff. Pitocin IV started for active management of the third stage of labor. 3 vessel cord clamped and cut by FOB after delay and cord blood collected. placed skin to skin with patient. Placenta delivered spontaneously and intact via FIORE maneuver. First degree laceration repaired in usual fashion using 3-0 Vicryl Rapid. Cervix visually swollen and continued oozing. Dr. Kennedy called to room for assessment. No cervical laceration visualized. Pressure held on cervix via ring forceps. Vaginal packing placed by Dr. Kennedy until tomorrow to place pressure on cervix. Fundus firm 2 below U. EBL 400 cc. APGARS 8/9. Repeat CBC in AM. Presentation: Vertex Amniotic Membrane Rupture Type: Artificial Time of Membrane Rupture: 1245 Amniotic Fluid Description: Lightly stained meconium Placental Delivery Description: Spontaneous Placenta Disposition: [facility] Cord Vessel Description: 3 Vessels Cord Entanglement: None Infant A Gender: Male (1 minute): 8 (5 minute): 9 Delayed Cord Clamping: Yes Post Vaginal Delivery Medications Given After Delivery: IV Pitocin Episiotomy Description: None Laceration: 1st degree Complication Complications: None
[2021-09-16] MEDS: Lactated Ringers 500 ML IV.SOLN. IV (22:30)
[2021-09-16 22:57] LABS: Absolute Lymphocyte Count 2.46 X10^3/uL (0.83-4.51); Absolute Neutrophil Count 17.7 X10^3/uL (2.0-7.7); Basophil# 0.04 X10^3/uL; Basophil% 0.2 % (0-1); Eosinophil# 0.03 X10^3/uL; Eosinophils% 0.1 % (0-5); Hemoglobin 10.7 g/dL (12.0-15.0); Lymphocyte # 2.46 X10^3/ul (0.83-4.51); Lymphocyte % 11.4 % (19-41); Mean Corp Hgb Conc 29.7 g/dL (32-36); Mean Corpuscular Hgb 29.3 pg (27.0-32.0); Mean Corpuscular Volume 98.6 fL (81-99); Mean Platelet Vol. 10.9 fl (6.2-12.0); Monocyte# 1.12 X10^3/uL; Monocyte% 5.2 % (0-10); NRBC Flagged by Analyzer 0 % (0-5); Neutrophil % 82.4 % (47-70); Platelet Count 272 K/mm3 (150-450); RBC Distribution Width SD 46.4 fl (35.1-43.9); Red Blood Count 3.65 M/mm3 (4.2-5.4); White Blood Count 21.5 K/mm3 (4.4-11.0)
[2021-09-17] VITALS (17 sets, daily range): BP systolic 114–150; BP diastolic 60–74; PULSE 71–86; RESP 14–16; TEMP 35.8–36.2; O2SAT 98–100
[2021-09-17] MEDS: Naproxen 500 MG Tablet PO ×3 (00:49→18:42)
[2021-09-17] MEDS: Acetaminophen 500 MG Tablet 1000 MG PO ×3 (04:55→19:59)
[2021-09-17 05:31] LABS: Hematocrit 28.9 % (37-47); Hemoglobin 9.7 g/dL (12.0-15.0); Mean Corp Hgb Conc 33.6 g/dL (32-36); Mean Corpuscular Volume 89.5 fL (81-99); Mean Platelet Vol. 10.7 fl (6.2-12.0); Platelet Count 286 K/mm3 (150-450); RBC Distribution Width CV 12.9 % (11.6-14.6); RBC Distribution Width SD 42.5 fl (35.1-43.9); Red Blood Count 3.23 M/mm3 (4.2-5.4); White Blood Count 18.9 K/mm3 (4.4-11.0)
--- NOTE | 2021-09-17 06:53 | PCM.PN.OB ---
Subjective Subjective Patient seen at bedside. Slept well through the night. with minimal support. Denies any headache, vision changes, SOB, or CP. Objective Data Objective Data Vital Signs: Vital Signs Temp Pulse Resp BP Pulse Ox 96.5 F L 73 16 114/68 98 09/17/21 04:50 09/17/21 04:50 09/17/21 04:50 09/17/21 04:50 09/17/21 04:50 Oxygen Delivery Method Room Air Weight: 219 lb Body Mass Index (BMI) 38.7 Intake & Output: Intake and Output for Last 24 Hours 09/15/21 09/16/21 09/17/21 23:59 23:59 23:59 Intake Total 3029.37 / 3029.37 Output Total 2200 / 2200 1200 / 1200 Balance 829.37 / 829.37 -1200 / -1200 Lab / Micro Data Result Diagrams: 09/17/21 05:25 Labs: Laboratory Results - last 24 hr 09/16/21 10:05: WBC 12.4 H, RBC 4.05 L, Hgb 11.8 L, Hct 36.1 L, MCV 89.1, MCH 29.1, MCHC 32.7, RDW Std Deviation 42.5, RDW Coeff of Elliot 13.1, Plt Count 305, MPV 11.0, Immature Gran % (Auto) 0.600, Neut % (Auto) 72.1 H, Lymph % (Auto) 20.4, [place] % (Auto) 6.1, Eos % (Auto) 0.6, Baso % (Auto) 0.2, Absolute Neuts (auto) 8.9 H, Absolute Lymphs (auto) 2.52, Nucleated RBC % 0 09/16/21 10:05: Blood Type O POSITIVE, Antibody Screen NEGATIVE 09/16/21 10:05: Crossmatch See Detail 09/16/21 22:30: WBC 21.5 H, RBC 3.65 L, Hgb 10.7 L, Hct 36.0 L, MCV 98.6 D, MCH 29.3, MCHC 29.7 L D, RDW Std Deviation 46.4 H, RDW Coeff of Elliot 13.0, Plt Count 272, MPV 10.9, Immature Gran % (Auto) 0.700, Neut % (Auto) 82.4 H, Lymph % (Auto) 11.4 L, [place] % (Auto) 5.2, Eos % (Auto) 0.1, Baso % (Auto) 0.2, Absolute Neuts (auto) 17.7 H, Absolute Lymphs (auto) 2.46, Nucleated RBC % 0 09/17/21 05:25: WBC 18.9 H, RBC 3.23 L, Hgb 9.7 L, Hct 28.9 L, MCV 89.5 D, MCH 30.0, MCHC 33.6 D, RDW Std Deviation 42.5, RDW Coeff of Elliot 12.9, Plt Count 286, MPV 10.7 ROS Eyes Eyes: Denies blurry vision, change in vision or spots in vision ENT HEENT: Denies dizziness or headache(s) Cardiovascular Cardiovascular: Denies abdominal pain, chest pain or dyspnea Respiratory/Chest Respiratory/Chest: Denies cough, dyspnea, shortness of breath at rest or shortness of breath with exertion Gastrointestinal Gastrointestinal: Denies abdominal pain, diarrhea or vomiting Genitourinary Genitourinary: Denies change in urinary stream, difficulty urinating or dysuria Musculoskeletal Musculoskeletal: Reports none Integumentary Integumentary: Denies rash Neurologic Neurologic: Denies dizziness, headache(s), memory loss or weakness Physical Exam Const alert and no apparent distress General Appearance: cooperative and comfortable Exam Limitations: no limitations HEENT normocephalic Eyes General Eye: normal appearance of both eyes Neck full ROM General: normal visual inspection Chest Chest: symmetrical chest wall rise Resp normal respiratory effort and normal air movement Effort and Inspection: symmetric chest movement Auscultation: clear to auscultation bilaterally Cardio regular rate and regular rhythm GI normal to inspection, nondistended, normoactive bowel sounds OB / External & Speculum: other Vaginal packing removed Back/Spine normal ROM Extremity full ROM and no calf tenderness General Extremity: normal exam except as noted Skin no rashes or lesions noted Neuro CN's II-XII intact bilaterally Psych mental status grossly normal Assessment & Plan (1) Laceration, obstetrical, first degree: (2) Vaginal delivery: PLAN: PPD 1 Vaginal packing removed without difficulty Graham Catheter removed Hgb. 9.7 down from 10.7- patient asymptomatic Start oral iron supplementation support Anticipate discharge home tomorrow
--- NOTE | 2021-09-17 08:45 | NURSING ---
Call placed to Dr. Newsome's office to continue celexa order. Nurse will leave note for Dr. Newsome about medication
[2021-09-17] MEDS: Ferrous Sulfate 325 MG Tablet PO (09:08)
[2021-09-17] MEDS: Citalopram 20 MG Tablet PO (11:33)
--- NOTE | 2021-09-17 23:49 | PN.OBGYN_ITS ---
Subjective Subjective Doing well per patient and nursing staff. Ambulating and taking PO without difficulty. Voiding and passing flatus. Pain controlled. , services for assistance. Denies headache, visual changes, chest pain, shortness of breath, leg pain or increased bleeding. Lochia normal. Objective Data Objective Data Vital Signs: Vital Signs Temp Pulse Resp BP Pulse Ox 97.1 F L 73 16 135/72 H 98 09/17/21 19:41 09/17/21 19:42 09/17/21 19:41 09/17/21 19:42 09/17/21 19:41 Oxygen Delivery Method Room Air Weight: 219 lb Body Mass Index (BMI) 38.7 Intake & Output: Intake and Output for Last 24 Hours 09/15/21 09/16/21 09/17/21 23:59 23:59 23:59 Intake Total 3029.37 / 3029.37 Output Total 2200 / 2200 3000 / 3000 Balance 829.37 / 829.37 -3000 / -3000 Lab / Micro Data Result Diagrams: 09/17/21 05:25 Labs: Laboratory Results - last 24 hr 09/16/21 10:05: Crossmatch See Detail 09/17/21 05:25: WBC 18.9 H, RBC 3.23 L, Hgb 9.7 L, Hct 28.9 L, MCV 89.5 D, MCH 30.0, MCHC 33.6 D, RDW Std Deviation 42.5, RDW Coeff of Elliot 12.9, Plt Count 286, MPV 10.7 ROS Constitutional Constitutional: Reports systems reviewed and no addt'l complaints, except as documented; Denies headache(s) Eyes Eyes: Denies acute decrease in peripheral vision, blurry vision or change in vi vero ENT HEENT: Reports systems reviewed and no addt'l complaints, except as documented Cardiovascular Cardiovascular: Denies chest pain or dizziness Respiratory/Chest Respiratory/Chest: Denies cough, dyspnea, dyspnea on exertion, shortness of breath at rest or shortness of breath with exertion Gastrointestinal Gastrointestinal: Denies abdominal pain, diarrhea, nausea or vomiting Genitourinary Genitourinary: Denies abdominal discomfort Musculoskeletal Musculoskeletal: Denies limited range of motion Integumentary Integumentary: Reports systems reviewed and no addt'l complaints, except as documented Neurologic Neurologic: Reports systems reviewed and no addt'l complaints, except as documented Psychiatric Psychiatric: Reports systems reviewed and no addt'l complaints, except as documented Endocrine Endocrinology: Reports systems reviewed and no addt'l complaints, except as documented Hematologic/Lymphatic Hematologic/Lymphatic: Reports systems reviewed and no addt'l complaints, except as documented Allergic/Immunologic Allergic/Immunologic: Reports systems reviewed and no addt'l complaints, except as documented Physical Exam Const alert and oriented x3 General Appearance: cooperative Orientation / Consciousness: awake, oriented to person, oriented to place and oriented to time Exam Limitations: no limitations HEENT normocephalic Head and Scalp: normal to inspection, normocephalic and atraumatic Face and Sinus: normal facial exam Eyes General Eye: normal appearance of both eyes Neck full ROM Chest Chest: symmetrical chest wall rise Resp normal respiratory effort and normal air movement Auscultation: clear to auscultation bilaterally Cardio regular rate, regular rhythm, S1 normal heart sound, S2 normal heart sound, no murmurs, no rub, no gallops and no clicks GI normal to inspection, nondistended, normoactive bowel sounds and non-tender GI Narrative: fundus firm 3 below U appearance of the vagina normal Bladder / Kidney Exam: no CVA tenderness Back/Spine normal ROM Extremity normal to inspection and full ROM Skin no rashes or lesions noted Neuro oriented x3, CN's II-XII intact bilaterally and moves all extremities Sensorium / Orientation: awake, alert and oriented to person Motor Exam: clonus absent Deep Tendon Reflexes: Rt Patellar (L4): 2+ and Lt Patellar (L4): 2+ Assessment & Plan (1) Laceration, obstetrical, first degree: (2) Vaginal delivery: PLAN: 1) PPD #2 2) Routine PP care and support 3) Pain management 4) Vitals stable 5) Follow up in 2 weeks and 6 weeks PP 6) D/C home today
--- NOTE | 2021-09-17 23:50 | PCM.DC.SUM ---
Providers Date of Admission: 09/16/21 Primary Care Physician: Dr. Josafat Milton MD Reason For Visit: LABOR & DELIVERY Diagnosis Discharge Diagnosis (1) Laceration, obstetrical, first degree: Status: Acute Code(s): O70.0 - First degree perineal laceration during delivery (2) Vaginal delivery: Status: Acute Code(s): O80 - Encounter for full-term uncomplicated delivery Medications at Discharge Home Medications Prenatabs FA 1 tab PO DAILY 09/23/18 citalopram [Celexa] 20 mg PO DAILY 09/16/21 acetaminophen 1,000 mg PO Q6H PRN PRN #0 tab 09/17/21 ferrous sulfate [FeroSul] 325 mg PO 1200,1700 #0 tab 09/17/21 naproxen 500 mg PO Q8H PRN PRN #0 tab 09/17/21 Weight / BMI Weight Weight: 219 lb Body Mass Index (BMI) 38.7 ABG / Lab / Microbiology Data Result Diagrams: 09/17/21 05:25 Laboratory: Laboratory Results - last 24 hr 09/16/21 10:05: Crossmatch See Detail 09/17/21 05:25: WBC 18.9 H, RBC 3.23 L, Hgb 9.7 L, Hct 28.9 L, MCV 89.5 D, MCH 30.0, MCHC 33.6 D, RDW Std Deviation 42.5, RDW Coeff of Elliot 12.9, Plt Count 286, MPV 10.7 Meaningful Use Info Meaningful Use Diagnoses (Choose all that apply): None applicable Discharge Plan Admission Admit Date/Time: 09/16/21 09:00 Primary Reason for Your Visit: vaginal delivery Attending Provider: Lilly Jain Primary Care Provider: Josafat Milton Instructions Patient Instructions: After a Vaginal Discharge Orders/Prescriptions Prescriptions: New acetaminophen 500 mg Tablet 1,000 mg PO Q6H PRN PRN (Reason: Pain 1-10 Or Fever) Qty: 0 RF: 0 ferrous sulfate [FeroSul] 325 mg (65 mg iron) Tablet 325 mg PO 1200,1700 Qty: 0 RF: 0 naproxen 500 mg Tablet 500 mg PO Q8H PRN PRN (Reason: Pain Score 1-3) Qty: 0 RF: 0 Continued Prenatabs FA 1 TABLET tablet 1 tab PO DAILY RF: 0 citalopram [Celexa] 20 mg Tablet 20 mg PO DAILY RF: 0 Discontinued Aspir-81 RF: 0 Referrals / Follow Up: Josafat Milton MD [Primary Care Provider] - Disposition Disposition (needs filled in before D/C Order can be placed): Home, Self Care
[2021-09-18 01:38] VITALS: BP 134/76; PULSE 70
[2021-09-18 01:40] VITALS: BP 134/76; PULSE 70; RESP 16; TEMP 36.2
[2021-09-18] MEDS: Naproxen 500 MG Tablet PO (04:56)
[2021-09-18 07:47] VITALS: BP 133/69; PULSE 76; RESP 16; TEMP 36.2; O2SAT 98
== END 2021-09-18 11:20 | disposition home or self-care (01) | DRG 807 ==
LOC: WPOUT 09:07 → WP 21:12
PROVIDERS: Admitting Provider Advanced Practice Midwife; PCP Family Medicine; Visit Provider Advanced Practice Midwife
DX: O99.214 Obesity complicating childbirth (principal); Z37.0 Single live birth; E66.9 Obesity, unspecified; O70.0 First degree perineal laceration during delivery; Z3A.40 40 weeks gestation of pregnancy; O77.0 Labor and delivery complicated by meconium in amniotic fluid; O99.344 Other mental disorders complicating childbirth; F32.A Depression, unspecified; Z79.899 Other long term (current) drug therapy
CPT/HCPCS: 59025; 59050; 85025; 85027; 86850; 86900; 86901; 86920; 86922; 99218; J7120; A4216; G0378